=== PATIENT | female | born 1965 | race American Indian/Alaskan Native ===

== ENCOUNTER 2017-05-01 08:10 | Day surgery (SDC) | payer MEDICAID ==
[2017-05-01] MEDS ORDERED: SILVER NITRATE TP ONE (08:39)
--- NOTE | 2017-05-01 09:16 | Anesthesia Consultation ---
Anesthesia Consult and Med Hx Date of service: 05/01/17 - Airway Anesthetic Teeth Evaluation: Good, Dentures (upper and lower) ROM Head & Neck: Adequate Mental/Hyoid Distance: Adequate Mallampati Class: Class I Intubation Access Assessment: Good - Pulmonary Exam CTA: Yes - Cardiac Exam Cardiac Exam: RRR - Pre-Operative Health Status ASA Pre-Surgery Classification: ASA3 Proposed Anesthetic Plan: General - Pulmonary Hx Smoking: Yes (1-2 cig a day) - Central Nervous System Hx Seizures: Yes (last this am 05/01/17) Hx Psychiatric Problems: Yes (anxiety, insomnia) - Hematic Hx Anemia: Yes - Other Systems Hx Alcohol Use: No Hx Substance Use: Yes (marijuana every other day) Hx Cancer: No - Additional Comments Anesthesia Medical History Comments: fell this morning and hurt right knee. Arthritis
[2017-05-01] MEDS ORDERED: NACL BACTERIOSTATIC INFILTRATI ONE (09:17)
--- NOTE | 2017-05-01 09:17 | Anesthesia Day of Surgery ---
Anesthesia Day of Surgery - Day of Surgery Patient Examined: Yes Patient H&P Reviewed: Yes Patient is NPO: Yes
[2017-05-01] MEDS ORDERED: DIPRIVAN 10 MG/ML IV ONE (09:23)
[2017-05-01] MEDS ORDERED: SUBLIMAZE ONE (09:24)
[2017-05-01 09:46] LABS: Hematocrit 41.5 % (30.3-42.9); Hemoglobin 13.4 gm/dl (10.1-14.3)
[2017-05-01] MEDS ORDERED: PEPCID IV NR (10:00)
[2017-05-01] MEDS ORDERED: LACTATED RINGERS 1,000 ML IV SCH (10:00)
[2017-05-01] MEDS ORDERED: VERSED IV NR (10:00)
[2017-05-01] MEDS ORDERED: NACL 0.9% IR ONE (10:15)
[2017-05-01] MEDS ORDERED: XYLOCAINE MPF 2% ONE (10:22)
[2017-05-01] MEDS ORDERED: ZOFRAN ONE (10:22)
[2017-05-01] MEDS ORDERED: DECADRON ONE (10:22)
--- NOTE | 2017-05-01 10:49 | Procedure Note ---
Date of procedure: 05/01/17 Pre-op diagnosis: Menometrorrhagia, thickened endometrium Post-op diagnosis: other (endometrial polyp) Procedure: Preoperative diagnosis: 1. Menometrorrhagia 2. Endometrial polyp. Post operative diagnosis: Same Procedure: 1. Hysteroscopy 2. D&C Surgeon: Dr. Bautista Ssn/Ssbn Weapons Equipment Operator: None Anesthesia: Sedation with MAC IVF: RL 1 L EBL: minimal Complications: none. Procedure details: Risks, benefits, and alternatives of the procedure were discussed in detail with the patient which included but not limited to the risk of infection, hemorrhage requiring blood transfusion, and uterine perforation. The patient expressed understanding, her questions were answered, and she gave her informed consent. The patient was taken to the operating room with an IV fluids infusing Ringer's lactate. In the operating room, she was placed in the dorsal supine position and given IV sedation with MAC. She was placed in the dorsal lithotomy position. The perineum and vagina were washed and she was prepared and draped in usual sterile fashion. Examination under anesthesia revealed normal external genitalia, vagina, and cervix. The uterus was retroverted and sounded 10 weeks size and mobile. Adnexa: Nonpalpable. A weighted speculum was placed on the posterior vaginal wall. The anterior lip of the cervix was grasped with a single-tooth tenaculum. Endocervical curettage was done. The endocervical os was dilated. The hysteroscope was introduced into the uterine cavity. It revealed a thickened endometrial lining and multiple small polyps throughout the endometrium. The ostia were not visualized. The hysteroscope was removed from the uterine cavity and a gentle curettage was performed removing multiple small polyps until a gritty texture was noticed. The specimen which consisted of ECC, EMC, and endometrial polyps was sent to pathology. The patient tolerated the procedure well. She was awakened from the anesthesia and taken to the recovery room in a stable condition. Anesthesia: MAC Surgeon: DAY BAUTISTA Estimated blood loss: minimal IV fluids: 1 Pathology: none Specimen disposition: to lab Condition: stable Disposition: same day
[2017-05-01] MEDS ORDERED: TORADOL IV ONE (11:00)
[2017-05-01 12:05] VITALS: BP 144/88
[2017-05-01] MEDS ORDERED: PERCOCET 5/325 PO PRN (12:13)
== END 2017-05-01 12:43 | disposition home or self-care (01) ==
LOC: OR 08:10
PROVIDERS: ATTEND Obstetrics & Gynecology
DX: N84.0 Polyp of corpus uteri (principal); N88.8 Other specified noninflammatory disorders of cervix uteri; E03.9 Hypothyroidism, unspecified; M13.859 Other specified arthritis, unspecified hip; F41.9 Anxiety disorder, unspecified; F32.9 Major depressive disorder, single episode, unspecified; F17.210 Nicotine dependence, cigarettes, uncomplicated; Z98.890 Other specified postprocedural states; Z79.899 Other long term (current) drug therapy
CPT/HCPCS: 36415; 58558; 81025; 85014; 85018; 88305; A4217; J1100; J2250; J2405; J2704; J3010; J7120